=== PATIENT | female | born 1945 | race Caucasian/White ===

== ENCOUNTER 2016-10-14 07:00 | Inpatient (IN) ==
--- NOTE | 2016-10-14 07:27 | PROVIDER DOCUMENTATION ---
HPI-Neurological Disorder - General Stated Complaint: ams Time Seen by Provider: 10/14/16 08:20 Source: family Allergies/Adverse Reactions: Patient Allergies Allergy/AdvReac Type Severity Reaction Status Date / Time nitrofurantoin Allergy Unknown RASH Verified 12/10/15 12:03 [From Macrobid] Home Medications: Home Medication List Medication Instructions Recorded Confirmed Last Taken Type Aspirin [Adult Low Dose Aspirin EC] 81 mg PO QAM #0 05/03/15 10/14/16 12/10/15 Rx Celecoxib [Celebrex] 200 mg PO QAM #0 05/03/15 12/10/15 12/10/15 Rx Esomeprazole Magnesium [Nexium] 40 mg PO QAM #0 05/03/15 10/14/16 12/10/15 Rx Bupropion HCl [Bupropion HCl ER] 300 mg PO DAILY 10/14/16 10/14/16 Unknown History Calcium Carbonate/Vitamin D3 1 each PO 10/14/16 Unknown History [Calcium 600-Vit D3 800 Tablet] Celecoxib 200 mg PO DAILY 10/14/16 10/14/16 Unknown History Cyanocobalamin (Vitamin B-12) 1,000 mcg PO DAILY 10/14/16 10/14/16 Unknown History [Vitamin B12] Desvenlafaxine E.r. [Pristiq ER] 50 mg PO DAILY 10/14/16 10/14/16 Unknown History Duloxetine HCl 60 mg PO DAILY 10/14/16 10/14/16 Unknown History Duloxetine [Cymbalta] 60 mg PO DAILY 10/14/16 10/14/16 Unknown History Ezetimibe 10 mg PO DAILY 10/14/16 10/14/16 Unknown History Methylphenidate [Ritalin] 10 mg PO BID 10/14/16 10/14/16 Unknown History Olanzapine 10 mg PO DAILY 10/14/16 10/14/16 Unknown History ROSUVAstatin [Crestor] 10 mg PO DAILY 10/14/16 10/14/16 Unknown History Venlafaxine HCl [Venlafaxine HCl 75 mg PO DAILY 10/14/16 10/14/16 Unknown History ER] - History of Present Illness-Neuro Nature of Presenting Problem: 71 y/o WF with a PMHx of GERD, HLD, Suicide attempt, depression and possible sleep disorder that presents to ER via EMS secondary to AMS. reports finding patient unresponsive this this morning. States pt's was last seen well at 9:30 lastnight. States pt's baseline is normally coherent and clear. Additionally, states pt has attempted suicide x 2 in the past. EMS states pt's blood sugar was 179. Onset/Duration: reports: other (last known well at 9:30 pm) Timing: reports: still present Context: reports: found unresponsive by family. denies: head injury, fever, paresthesia, facial droop, falling, seizure activity Character of Altered Mental Status: reports: decreased responsiveness Any recent trauma/injury?: reports: none New weakness or altered sensation location:: reports: other (unablw to ascertain ) Cognitive Baseline: alert, oriented x3 Associated Symptoms: reports: other (bilateral shoulder and arm pain) Review of Systems - Adult - REVIEW OF SYSTEMS - ADULT Constitutional: reports: no symptoms reported Eyes: reports: no symptoms reported Ears, Nose, Mouth & Throat: reports: no symptoms reported Cardiovascular: reports: no symptoms reported Respiratory: reports: no symptoms reported Gastrointestinal: reports: no symptoms reported Genitourinary: reports: no symptoms reported Musculoskeletal: reports: no symptoms reported Integumentary: reports: no symptoms reported Neurological: reports: other (decreased responsiveness) Psychiatric: reports: other (decreased responsiveness) Endocrine: reports: no symptoms reported Hematologic/Lymphatic: reports: no symptoms reported Allergic/Immunologic: reports: no symptoms reported Past History - Adult - PAST MEDICAL HISTORY-ADULT Review of Records: reports: Old Records Reviewed, Nursing Assessment Review, Medications Reviewed Cardiovascular: reports: hyperlipidemia Neurological: denies: spinal cord/brain injury Psychiatric: reports: anxiety, depression - PRIOR SURGERIES/PROCEDURES Surgical/Procedure History: reports: none, other (bladder sling) - IMMUNIZATION STATUS Childhood Immunizations: See Nurse Assessment Flu Vaccine: See Nurse Assessment - FAMILY HISTORY Family History: reviewed, not pertinent - SOCIAL HISTORY Smoking: denies Substance Use: none/never Alcohol Use Frequency: never Living Situation: family Physical Exam- Neurological - Physical Exam-Neuro General Appearance: thin, lethargic, obtunded Eye Exam: bilateral eye: normal inspection, PERRL, EOMI HENMT: normocephalic/atraumatic, other (dry oral mucosa) Head Injury: no evidence of injury. negative: Trinidad's Sign, contusions, lacerations, raccoon eyes, swelling Neck: full range of motion, supple. negative: lymphadenopathy Respiratory: chest non-tender, lungs clear, normal breath sounds. negative: crackles, rales, rhonchi, stridor, wheezing Cardiovascular: no murmur, tachycardia. negative: irregularly irregular Abdominal Exam: normal bowel sounds, soft, rigid. negative: distended, guarding , rebound Lymphatic: no adenopathy Extremity: normal inspection. 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 negative: normal speech, facial asymmetry, facial droop, facial paresthesias Coordination/Gait: negative: normal finger to nose, normal gait Motor/Sensory: other (unable to assess due to condition) Neurologic: other (unable to assess due to condition). negative: facial droop Integumentary: normal color, normal turgor, warm/dry. negative: swelling, tenderness Psych/Mental Status: other (unable to assess due to condition) - Glascow Coma Scale Best Eye Response: (2) open to pain Best Verbal Response: (1) no verbal response Best Motor Response: (4) withdraws to pain Progress - PLAN OF CARE/RESULTS Progress/Plan/Lab Results: Vital Signs - 8 hr 10/14/16 07:25 10/14/16 08:16 10/14/16 08:51 Temperature 98.5 F Pulse Rate 130 H 129 H 127 H Respiratory Rate 18 20 16 Blood Pressure 116/61 137/80 137/80 O2 Sat by Pulse Oximetry 99 100 100 Laboratory Results - last 24 hr 10/14/16 10/14/16 10/14/16 07:24 07:37 07:37 WBC 12.44 H RBC 4.18 L Hgb 13.7 Hct 39.5 MCV 94.5 MCH 32.8 H MCHC 34.7 RDW Std Deviation 11.9 Plt Count 252 MPV 9.3 Immature Gran % (Auto) 0.0 Neut % (Auto) 91.5 H Lymph % (Auto) 5.1 L Bertie % (Auto) 3.3 Eos % (Auto) 0.1 Baso % (Auto) 0.0 Immature Gran # (Auto) 0.00 Neut # (Auto) 11.39 H Lymph # (Auto) 0.63 L Bertie # (Auto) 0.41 Eos # (Auto) 0.01 Baso # (Auto) 0.00 Segmented Neutrophils Not Reportable PT INR PTT (Actin FS) Specimen Type ARTERIAL Sample Site R RADIAL pH 7.42 pCO2 36 pO2 88 HCO3 24.3 Base Excess -0.7 Oxyhemoglobin 95.9 ABG O2 Sat (Calculated) 19.1 ABG O2 Saturation 99.5 ABG Carboxyhemoglobin 2.00 ABG Methemoglobin 1.6 H Luisito Test YES Total Hemoglobin 14.1 Lactate 4.30 H Liter Flow 4.0 Blood Gas Modality CANNULA FiO2 % 36.0 Sodium Potassium Chloride Carbon Dioxide Anion Gap BUN Creatinine Estimated GFR/1.73 m2 BUN/Creatinine Ratio Glucose Calculated Osmolality Calcium Total Bilirubin AST ALT Alkaline Phosphatase Creatine Kinase Troponin T Total Protein Albumin Globulin Albumin/Globulin Ratio Plasma Lactate Urine Source Urine Color Urine Turbidity Urine pH Ur Specific [place] Urine Protein Ur Glucose (Stick) Ur Ketones (Stick) Urine Blood Urine Nitrite Urine Bilirubin Urobilinogen Dipstick Urine Leukocytes Urine WBC (Auto) Urine RBC (Auto) U Epithel Cells (Auto) Urine Bacteria (Auto) Urine Opiates Screen Ur Oxycodone Screen Ur Methadone, Qual Ur Barbiturates Screen Ur Phencyclidine Scrn Ur Amphetamines Screen U Benzodiazepines Scrn Urine Cocaine Screen U Cannabinoids Screen Plasma/Serum Ethyl Alc 10/14/16 10/14/16 10/14/16 07:37 07:37 07:37 WBC RBC Hgb Hct MCV MCH MCHC RDW Std Deviation Plt Count MPV Immature Gran % (Auto) Neut % (Auto) Lymph % (Auto) Bertie % (Auto) Eos % (Auto) Baso % (Auto) Immature Gran # (Auto) Neut # (Auto) Lymph # (Auto) Bertie # (Auto) Eos # (Auto) Baso # (Auto) Segmented Neutrophils PT 10.2 INR 0.97 PTT (Actin FS) 25.2 Specimen Type Sample Site pH pCO2 pO2 HCO3 Base Excess Oxyhemoglobin ABG O2 Sat (Calculated) ABG O2 Saturation ABG Carboxyhemoglobin ABG Methemoglobin Luisito Test Total Hemoglobin Lactate Liter Flow Blood Gas Modality FiO2 % Sodium 138 Potassium 4.0 Chloride 100 Carbon Dioxide 21 L Anion Gap 17 BUN 21 Creatinine 0.8 Estimated GFR/1.73 m2 > 60 BUN/Creatinine Ratio 26 Glucose 182 H Calculated Osmolality 283 Calcium 9.6 Total Bilirubin 0.23 AST 16 ALT 13 Alkaline Phosphatase 68 Creatine Kinase 44 Troponin T Total Protein 6.7 Albumin 3.8 Globulin 2.9 Albumin/Globulin Ratio 1.3 Plasma Lactate 5.6 H Urine Source Urine Color Urine Turbidity Urine pH Ur Specific [place] Urine Protein Ur Glucose (Stick) Ur Ketones (Stick) Urine Blood Urine Nitrite Urine Bilirubin Urobilinogen Dipstick Urine Leukocytes Urine WBC (Auto) Urine RBC (Auto) U Epithel Cells (Auto) Urine Bacteria (Auto) Urine Opiates Screen Ur Oxycodone Screen Ur Methadone, Qual Ur Barbiturates Screen Ur Phencyclidine Scrn Ur Amphetamines Screen U Benzodiazepines Scrn Urine Cocaine Screen U Cannabinoids Screen Plasma/Serum Ethyl Alc 10/14/16 10/14/16 10/14/16 07:37 07:57 07:57 WBC RBC Hgb Hct MCV MCH MCHC RDW Std Deviation Plt Count MPV Immature Gran % (Auto) Neut % (Auto) Lymph % (Auto) Bertie % (Auto) Eos % (Auto) Baso % (Auto) Immature Gran # (Auto) Neut # (Auto) Lymph # (Auto) Bertie # (Auto) Eos # (Auto) Baso # (Auto) Segmented Neutrophils PT INR PTT (Actin FS) Specimen Type Sample Site pH pCO2 pO2 HCO3 Base Excess Oxyhemoglobin ABG O2 Sat (Calculated) ABG O2 Saturation ABG Carboxyhemoglobin ABG Methemoglobin Luisito Test Total Hemoglobin Lactate Liter Flow Blood Gas Modality FiO2 % Sodium Potassium Chloride Carbon Dioxide Anion Gap BUN Creatinine Estimated GFR/1.73 m2 BUN/Creatinine Ratio Glucose Calculated Osmolality Calcium Total Bilirubin AST ALT Alkaline Phosphatase Creatine Kinase Troponin T < 0.010 Total Protein Albumin Globulin Albumin/Globulin Ratio Plasma Lactate Urine Source CATH Urine Color YELLOW Urine Turbidity CLEAR Urine pH 5.5 Ur Specific [place] 1.016 Urine Protein TRACE A Ur Glucose (Stick) 500 A Ur Ketones (Stick) NEGATIVE Urine Blood NEGATIVE Urine Nitrite NEGATIVE Urine Bilirubin NEGATIVE Urobilinogen Dipstick NORMAL Urine Leukocytes TRACE A Urine WBC (Auto) <10 Urine RBC (Auto) <10 U Epithel Cells (Auto) <10 Urine Bacteria (Auto) NEGATIVE Urine Opiates Screen NONE DETECTED Ur Oxycodone Screen NONE DETECTED Ur Methadone, Qual NONE DETECTED Ur Barbiturates Screen NONE DETECTED Ur Phencyclidine Scrn NONE DETECTED Ur Amphetamines Screen NONE DETECTED U Benzodiazepines Scrn NONE DETECTED Urine Cocaine Screen NONE DETECTED U Cannabinoids Screen NONE DETECTED Plasma/Serum Ethyl Alc Orders Category Date Time Status Cardiac Monitoring DIRECTED Care 10/14/16 06:58 Active Finger Stick Blood Sugar (ED) DIRECTED Care 10/14/16 06:58 Active Oxygen Therapy- ED Nursing DIRECTED Care 10/14/16 06:58 Active Saline Loc NOW Care 10/14/16 06:58 Active CHEST-PORTABLE [RAD] Stat Exams 10/14/16 06:58 Taken HEAD W/O CONTRAST [CT] Stat Exams 10/14/16 07:00 Draft ABG [RESP] Routine Lab 10/14/16 07:24 Completed ALCOHOL BLOOD Stat Lab 10/14/16 07:37 Completed BLOOD CULTURE [BLDCUL] Stat Lab 10/14/16 07:30 Received CBC WITH ELECTRONIC DIFF [HEME] Stat Lab 10/14/16 07:37 Completed CK PROFILE [SP CHEM] Stat Lab 10/14/16 07:37 Completed COMPREHENSIVE METABOLIC PANEL [CHEM] Stat Lab 10/14/16 07:37 Completed LACTATE, PLASMA [CHEM] Stat Lab 10/14/16 07:37 Completed PROTIME WITH INR [COAG] Stat Lab 10/14/16 07:37 Completed PTT [COAG] Stat Lab 10/14/16 07:37 Completed TROPONIN T Stat Lab 10/14/16 07:37 Completed URINALYSIS W/POSS RFLX CULT-1 [URINALYSIS] Stat Lab 10/14/16 07:57 Completed URINE CULTURE [RM] Routine Lab 10/14/16 08:41 Received URINE DRUG SCREEN Stat Lab 10/14/16 07:57 Completed 0.9% Sodium Chloride Inj [Ns] 1,000 ml Med 10/14/16 07:48 Discontinued IV 999 mls/hr CefTRIAXONE 1 GM/NS [Rocephin 1 gm/Ns] Med 10/14/16 08:13 Discontinued 1 gm in 50 ml IV NOW Pulse Oximetry Stat Oth 10/14/16 06:58 Active EKG [EKG] Stat Ther 10/14/16 06:58 Ordered Result Diagrams: 10/14/16 07:37 10/14/16 07:37 - EKG 1 Time of EKG reading by physician:: 07:19 EKG Read and Signed by:: Mary oLu Su Jr EKG Interpretation (*Must complete 3 of following elements*): Abnormal Rate: 129 Rhythm: sinus tachycardia SD Interval: normal ST Wave: normal - XRAY 1 XRAY Study: Chest Impression: Normal XRAY Interpretation: negative - CT/MRI 1 CT Study: Head Impression: Normal CT Results: negative head CT - CONSULTS/PCP/HOSPITALIST Notification #1 *Consult/PCP/Hospitalist*: Dr. Calvo Time Discussed: :02 Consult Disposition: Admit Departure - Departure Time of Disposition Decision: :07 DIAGNOSIS: Encephalopathy, Tachycardia Disposition: ADMITTED INPATIENT 09 Certified Medical Emergency: Emergent Condition: Good - Critical Care Note This patient required my direct & personal management of CC.: No
[2016-10-14 07:37] LABS: ALLEN TEST YES; BE -0.7 mmoll (-3.0-3.0); BLOOD TYPE ARTERIAL; DRAW SITE R RADIAL; METHB 1.6 % (0.0-1.5); O2(CT) 19.1 mL/dL (15.0-23.0); PCO2(98.6) 36 mmHg (35-45); PO2(98.6) 88 mmHg (60-100); SAMPLE BLOOD; SAO2 99.5 % (95.0-100.0); THB 14.1 g/dL (11.5-17.4); pH(98.6) 7.42 (7.35-7.45)
[2016-10-14 07:39] LABS: MODALITY CANNULA
[2016-10-14] MEDS ORDERED: NS 1,000 ML IV ONE ×3 (07:48→09:43)
--- NOTE | 2016-10-14 07:53 | Diag Imaging Result Document ---
PROCEDURE NAME: HEAD W/O CONTRAST - 10/14/[address]: A CT dose reduction protocol was used. COMPARISON: 12/10/2015. FINDINGS: The ventricles and sulci are normal in size and contour. There is no mass, hemorrhage, or evidence of acute ischemia. The bony calvaria is intact. The visualized paranasal sinuses and mastoid air cells are clear. IMPRESSION: Negative head [facility]
[2016-10-14 08:02] LABS: EOS# 0.01 X1000 (0.0-0.7); EOS% 0.1 % (0.0-10.0); HEMATOCRIT 39.5 % (37.0-47.0); HEMOGLOBIN 13.7 g/dL (12.0-16.0); LYMPH# 0.63 X1000 (1.2-3.4); LYMPH% 5.1 % (20.5-51.1); MCH 32.8 PG (27-31); MCHC 34.7 g/dL (33-37); MCV 94.5 FL (81-99); MONO# 0.41 X1000 (0.11-0.59); MONO% 3.3 % (1.7-9.3); MPV 9.3 FL (7.4-10.4); NEUT% 91.5 % (42.2-75.2); PLT 252 X1000 (130-400); RBC 4.18 XMIL (4.2-5.4)
[2016-10-14 08:05] LABS: INR 0.97; PROTIME 10.2 Seconds (9.2-11.7); PTT 25.2 Seconds (22.0-36.0)
[2016-10-14 08:07] LABS: AGAP 17; ALBUMIN 3.8 g/dL (3.5-5.0); ALKALINE PHOSPHATASE 68 U/L (32-104); BUN 21 mg/dL (8-22); CALCIUM 9.6 mg/dL (8.8-10.2); CHLORIDE 100 mmol/L (98-107); CK PROFILE 44 U/L (24-173); COSMO 283; GOT 16 U/L (10-30); GPT 13 U/L (10-36); SODIUM 138 mmol/L (136-145); TCO2 21 mmol/L (25-35); TOTAL BILIRUBIN 0.23 mg/dL (0.20-1.00); TOTAL PROTEIN 6.7 g/dL (6.3-8.3)
[2016-10-14] MEDS ORDERED: ROCEPHIN 1 GM/NS 1 GM/50 ML IVPB IV ONE (08:13)
[2016-10-14 08:18] LABS: URINE MICRO REVIEW NEEDED? NO; URINE SOURCE CATH
[2016-10-14 08:23] LABS: BILIRUBIN URINE NEGATIVE (NEGATIVE); BLOOD URINE NEGATIVE (NEGATIVE); COLOR YELLOW; GLUCOSE URINE 500 mg/dL (NEGATIVE); LEUKOCYTES URINE TRACE (NEGATIVE); NITRITE URINE NEGATIVE (NEGATIVE); PH URINE 5.5; PROTEIN URINE TRACE mg/dL (NEGATIVE); SP GRAVITY URINE 1.016; TURBIDITY URINE CLEAR (CLEAR); UR EPITHELIAL CELLS <10 /HPF (<10); URINE BACTERIA NEGATIVE /HPF; URINE CULTURE NEEDED? YES; URINE RBC <10 /HPF (<10); URINE WBC <10 /HPF (<10); UROBILINOGEN URINE NORMAL (NORMAL)
[2016-10-14 08:35] LABS: MANUAL DIFF NEEDED? NO
[2016-10-14 08:40] LABS: UR AMPHETAMINES QUAL NONE DETECTED (NONE DETECT); UR BARBITUATES QUAL NONE DETECTED (NONE DETECT); UR BENZODIAZEPIN QUAL NONE DETECTED (NONE DETECT); UR CANNABINOIDS QUAL NONE DETECTED (NONE DETECT); UR COCAINE QUAL NONE DETECTED (NONE DETECT); UR METHADONE QUAL NONE DETECTED (NONE DETECT); UR OPIATES QUAL NONE DETECTED (NONE DETECT); UR OXYCODONE QUAL NONE DETECTED (NONE DETECT); UR PCP QUAL NONE DETECTED (NONE DETECT)
[2016-10-14] MEDS ORDERED: ZOFRAN IV PRN (09:43)
--- NOTE | 2016-10-14 10:58 | Diag Imaging Result Document ---
PROCEDURE NAME: CHEST-PORTABLE - 10/14/2016 PORTABLE CHEST X-RAY, 10/14/2016: COMPARISON: 12/10/2015. FINDINGS: The lungs are normally expanded and clear. Heart size and mediastinal contours are normal. No pneumothorax or pleural effusion. IMPRESSION: Negative exam.
[2016-10-14 11:36] LABS: ACETAMINOPHEN < 1.2 ug/mL (10-30)
--- NOTE | 2016-10-14 15:49 | HISTORY AND PHYSICAL ---
PRIMARY CARE PROVIDER: Dr. Rachid Godoy. CHIEF COMPLAINT: Unresponsive. HISTORY OF PRESENT ILLNESS: Ms. Jodie Shaikh is a 71-year-old female with a history of depression and suicidal attempts x2; one with medications, another with attempted hanging with a belt. Also history of arthritis, hyperlipidemia, GERD. Apparently, the states that he last saw her normal round 9:30 last night when he went to bed. She usually does not go to bed until about 10:30. He woke up this morning around 5:30, got ready and then at 6: 00 a.m. checked on her. She had uncovered herself, no blankets, was moaning and groaning, snoring, would withdraw her arms to stimulation. She did open her eyes and look at him with focusing. He states that her breathing was okay and that she was mumbling some, and he called 911. When further reviewing her medication list, her box of medications had medications from back in 2011, so it is unsure if she overdosed the prescription medications. Urine drug screen is negative. Alcohol is negative. She has got an elevated lactate with elevated white blood cell count, but she is afebrile. We will do IV fluids. She did receive 1 g of Rocephin. We will admit to the ICU. She did not follow commands but with physical and verbal stimuli she opened her eyes and focused momentarily and mumbled. She will be monitored closely, started on IV fluid hydration. PAST MEDICAL HISTORY: GERD, hyperlipidemia, suicidal ideations with 2 attempts , depression, sleep disorder, arthritis, B12 deficiency. SURGICAL HISTORY: Bladder sling. SOCIAL HISTORY: Denies tobacco, alcohol, or illicit drug use. FAMILY HISTORY: Father had Alzheimer's. Mother via suicide and, apparently, there is heart disease on both sides of the family. REVIEW OF SYSTEMS: Unable to obtain. ALLERGIES: Nitrofurantoin. HOME MEDICATIONS: 1. Aspirin 81 mg p.o. daily. 2. Wellbutrin 300 mg p.o. daily. 3. Calcium. 4. Vitamin D. 5. Celebrex 200 mg p.o. daily. 6. Vitamin B12 1000 mcg p.o. daily. 7. Pristiq extended release, 50 mg p.o. daily. 8. Cymbalta 60 mg p.o. daily. 9. Nexium 40 mg p.o. daily. 10. Ezetimibe 10 mg p.o. daily. 11. Ritalin 10 mg p.o. twice daily. 12. Olanzapine Zyprexa 10 mg p.o. daily. 13. Crestor 10 mg p.o. daily. 14. Venlafaxine extended release 75 mg p.o. daily. LABORATORY DATA: White blood cells 12,000. Hemoglobin 13, hematocrit 39, platelet count 252,000. INR 0.97. PTT 25.2. PO 7.42, pCO2 of 36, PO2 of 88, bicarb 24, base excess - 0.7. Lactate 4.3 on the ABG and a serum lactate of 5.6. This is on 4 L nasal cannula. Sodium 138, potassium 4.0. BUN 21, creatinine 0.8, glucose 182. Bilirubin 0.23, AST 16, ALT 13, CK 44, troponin less than 0.01. Urinalysis: Trace protein, 500 glucose, trace leukocytes. IMAGING: Head CT was negative. Chest x-ray was negative. PHYSICAL EXAMINATION: VITAL SIGNS: Temperature 98.5 degrees, heart rate 132, respiratory rate 21, blood pressure 138/73, O2 saturation 100% on 2 L nasal cannula. 5 feet 6 inches tall, 120 pounds. BMI is 19.4. GENERAL: Ms. Jodie Shaikh is a 71-year-old female who is currently unresponsive verbally. HEENT: Atraumatic, normocephalic. Pupils equal, round, reactive to light. Unable to assess extraocular movements. Mucous membranes are dry. NECK: No JVD or carotid bruits. CARDIOVASCULAR: S1, S2. Tachycardic rate and rhythm. No rubs, gallops, murmurs. PULMONARY: Clear to auscultation. Bilateral breath sounds. No accessory muscle use or work of breathing noted. Currently on 2 L nasal cannula. GI soft nontender nondistended. Positive bowel sounds x4. EXTREMITIES: No edema noted. +1 dorsalis pedal pulses, +2 radial pulses. NEUROLOGIC: Pupils equal and reactive. She does not follow commands. Opens eyes and focused to verbal physical stimuli. Withdrew all extremities. SKIN: Warm, dry, intact. ASSESSMENT AND PLAN: 1. Likely toxic encephalopathy secondary to prescription medications. We will monitor in the ICU until she is responsive again. Neuro checks every 4 hours. IV fluid hydration. 2. Lactic acidosis with leukocytosis. This is Systemic Inflammatory Response Syndrome but no actual source of infection. She did receive 1 dose of Rocephin. We will follow up with blood cultures and again with IV fluid hydration. 3. Depression with history of suicidal attempts. Will likely need [facility] consult prior to discharge. Dictated by CHANDNI Thompson for Jules Calvo MD cc: CHANDNI Thompson MD Jeffrey A. Johnson, DO pt examined, agree with above, if unimproved in next 24 hours will pursue MRI and possibly neuro consult [facility]
[2016-10-14] MEDS: NS 1,000 ML IV SCH (18:20)
[2016-10-14] MEDS: LOPRESSOR IV SCH (20:00)
[2016-10-15] MEDS: NS 1,000 ML IV SCH ×2 (03:22→13:55)
[2016-10-15] MEDS: LOPRESSOR IV SCH ×4 (03:22→19:27)
[2016-10-15 04:44] LABS: MANUAL DIFF NEEDED? NO
[2016-10-15 04:50] LABS: BASO% 0.2 % (0.0-0.8); HEMATOCRIT 37.4 % (37.0-47.0); HEMOGLOBIN 12.8 g/dL (12.0-16.0); LYMPH# 0.57 X1000 (1.2-3.4); LYMPH% 11.1 % (20.5-51.1); MCH 32.2 PG (27-31); MCHC 34.2 g/dL (33-37); MCV 94.2 FL (81-99); MONO# 0.57 X1000 (0.11-0.59); MONO% 11.1 % (1.7-9.3); MPV 9.3 FL (7.4-10.4); NEUT% 77.6 % (42.2-75.2); PLT 226 X1000 (130-400); RBC 3.97 XMIL (4.2-5.4)
[2016-10-15 05:06] LABS: AGAP 11; ALKALINE PHOSPHATASE 56 U/L (32-104); BUN 12 mg/dL (8-22); CALCIUM 9.1 mg/dL (8.8-10.2); CHLORIDE 105 mmol/L (98-107); COSMO 279; GOT 16 U/L (10-30); GPT 10 U/L (10-36); MAGNESIUM 1.7 mg/dL (1.5-2.7); POTASSIUM 3.8 mmol/L (3.5-5.1); SODIUM 139 mmol/L (136-145); TCO2 23 mmol/L (25-35); TOTAL BILIRUBIN 0.57 mg/dL (0.20-1.00); TOTAL PROTEIN 5.7 g/dL (6.3-8.3)
--- NOTE | 2016-10-15 05:07 | EKG Report ---
Test Performed on : 10/14/2016 07:19:30 AM Test Reason : Blood Pressure : / mmHG Vent. Rate : 129 BPM Atrial Rate : 129 BPM P-R Int : 148 ms QRS Dur : 076 ms QT Int : 316 ms P-R-T Axes : 045 013 068 degrees QTc Int : 462 ms Sinus tachycardia. Cannot rule out Anterior infarct , age undetermined Abnormal ECG When compared with ECG of 10-DEC-2015 11:40, Vent. rate has increased BY 46 BPM Unconfirmed Result
--- NOTE | 2016-10-15 10:19 | PROGRESS NOTE ---
DATE: 10/15/2016 SUBJECTIVE: The patient is still confused. She opens her eyes more, but she is still fairly confused. She is not doing anything appropriately. Occasionally she has kind of a shaking episode, where it is not really a full seizure. OBJECTIVE: Vital Signs: Blood pressure 113/78, heart rate of 111, respiratory rate of 24 and temperature of 98.3 at 93% on 3 liters. Cardiovascular: Regular rate and rhythm. Pulmonary: Bilateral breath sounds. Occasional rhonchi. GI: Soft, nontender and nondistended. Neuro: Nonfocal, but does not participate well on exam. She does track across the midline, though. LABORATORY DATA: CMP was normal. CBC was normal. Hemoglobin and hematocrit is 12 and 37, with a normal white count. Urine is clear. UDS was unremarkable. PROBLEM LIST: 1. Encephalopathy, multifactorial. There is a possibility there is overdose, although it is not clear what she actually overdosed on at this point. Seems just not sure if this is delirium, if this is a psychiatric issue primarily. Her neuro exam is somewhat unreliable. We will progress with MRI and follow. Will try to get a neurology opinion just to see if there is some concern over subclinical seizures. We will check B 12, folate, RPR, thyroid stimulating hormone, although I do not think any of these issues necessarily are contributing and follow clinically. 2. Depression. Will await her medications. She was started on medications recently. Apparently she was started on methylphenidate, which I thought that would be positive for her amphetamines, but that did not show up in her drug screen. May repeat her drug screen just to see if anything has changed, and we will follow clinically. 3. Disposition: Pending her clinical status. Intensive care unit monitoring for now because she is still on the high aspiration risk, and we will go from there. cc: Jules Calvo MD
[2016-10-15] MEDS: ATIVAN IV ONE ×2 (10:23→10:38)
[2016-10-15] MEDS: SODIUM CHLORIDE 0.9% INJ SCH (10:24)
[2016-10-15] MEDS: PROTONIX IV SCH (10:24)
[2016-10-15] MEDS: LOVENOX SUBQ SCH (10:25)
--- NOTE | 2016-10-15 12:17 | Diag Imaging Result Document ---
PROCEDURE NAME: MRI BRAIN W W/O CONTRAST - 10/15/2016 MRI BRAIN WITH AND WITHOUT: TECHNIQUE: Axial, sagittal, and coronal images were obtained in multiple sequences. These were followed by postcontrast axial and coronal images. FINDINGS: No recent infarct. There are only minimal microvascular ischemic changes. No mass or midline shift. No enhancing lesion on the postcontrast images. No hydrocephalus. No epidural or subdural fluid collection. There is a small amount of fluid in the right mastoid sinus. No sinus opacification. IMPRESSION: 1. No recent infarct or mass. 2. There are only minimal microvascular ischemic changes.
[2016-10-15 12:20] LABS: UR AMPHETAMINES QUAL NONE DETECTED (NONE DETECT); UR BARBITUATES QUAL NONE DETECTED (NONE DETECT); UR BENZODIAZEPIN QUAL NONE DETECTED (NONE DETECT); UR CANNABINOIDS QUAL NONE DETECTED (NONE DETECT); UR COCAINE QUAL NONE DETECTED (NONE DETECT); UR METHADONE QUAL NONE DETECTED (NONE DETECT); UR OPIATES QUAL NONE DETECTED (NONE DETECT); UR OXYCODONE QUAL NONE DETECTED (NONE DETECT); UR PCP QUAL NONE DETECTED (NONE DETECT)
--- NOTE | 2016-10-15 14:05 | CONSULTATION ---
DATE OF CONSULTATION: 10/15/2016 REASON FOR CONSULTATION: The patient is seen in consultation at the request of Dr. Calvo for evaluation of altered mental status and possible seizure. HISTORY OF PRESENT ILLNESS: The history is taken from chart review, as the patient is altered and unable to provide the history, and there is no family present at this time. The patient is a 71-year-old female with a history of depression, suicidal attempts in the past, and hyperlipidemia, who presented unresponsive to the ER yesterday and was admitted. Her stated that she was normal around 9:30 p.m. the night prior, when he last saw her. He checked on her at 6 a.m., after he was up and dressed, and he found that she had uncovered herself, had no blankets, with moaning and groaning, snoring, and would withdraw her arms to stimulation. She apparently opened her eyes and was able to look at him. He stated that she was breathing and mumbling, and he called 911. Apparently, her medications had some dated back from 2011, so it is not clear whether or not she had taken some of these old medications. There was a report that she did have a couple of medication changes recently that were related to her psychiatric issues. On admission, her urine drug screen was negative. Alcohol was negative. Her white count was elevated at 12, but she was afebrile. Her lactate was elevated , as well. White count is normal today. She did receive IV fluids and Rocephin. PAST MEDICAL HISTORY: 1. Depression. 2. Suicidal ideations with 2 attempts, 1 with medication overdose and 1 attempt at hanging herself with a belt. 3. Hyperlipidemia. 4. GERD. 5. Sleep disorder. 6. Arthritis. 7. B12 deficiency. 8. Bladder sling. SOCIAL HISTORY: Reportedly negative for tobacco, alcohol, or illicit drug use. She is . FAMILY HISTORY: Reported that her mother committed suicide and she may have had another family member who has also committed suicide. Heart disease runs in the family. Her father may have had Alzheimer disease. ALLERGIES: Nitrofurantoin. REVIEW OF SYSTEMS: Unable to obtain due to the patient's mental status. HOME MEDICATIONS: Aspirin 81 mg. Wellbutrin. Calcium and vitamin D. Celebrex. B12. Pristiq extended-release. Cymbalta. Nexium. Ritalin. Olanzapine. Crestor. Venlafaxine extended release. Ezetimibe. PHYSICAL EXAMINATION: Vital Signs: Afebrile, pulse 111, blood pressure 113/78 , respiratory rate 24, 93% on 3L nasal cannula. General: This is an elderly female lying in bed, mouth open. Gurgling noises are prominent. She somnolent. HEENT: Normocephalic. Anicteric. No erythema. Dry mucous membranes. Neck: Supple. Could not appreciate carotid bruits over the gurgling noises. Cardiovascular: Regular rhythm. Intact pedal pulses. Lungs: She has upper airway gurgling, which is prominent. Abdomen: Soft, nondistended. Extremities : No cyanosis or edema. Skin: No rash. NEUROLOGICAL EXAMINATION: Mental status: She is somnolent, does not attend. She does not respond to loud voice. She does grimace to light sternal rub. She does not open her eyes and regard me. Cranial nerves: Her pupils are equal, round, and reactive to light. Pupils are 3 to 2 mm, both eyes. Positive doll's eyes. No nystagmus. Her face appears symmetrical with equal grimace. Motor examination: Normal bulk and tone. She has occasional irregular and fluctuating shaking of her extremities all over. This notably happens with some regularity with tactile stimulation. She is at least against gravity in all of her extremities and appears symmetrical. Her reflexes are brisk, 3+ and symmetric throughout, though she has no clonus. Her plantar response is flexor on the left and remains neutral on the right. No Andrade's sign. Sensory examination: She responds to painful stimulation symmetrically in all extremities. Cerebellar, coordination, and gait: Unable to assess due to mental status. LABORATORY DATA: White count on admission was 12.4, normal today. Hemoglobin 13.7, hematocrit 39, platelets 252,000. Chemistry panel was normal. The glucose was 132. Magnesium and calcium normal. AST, ALT, and alkaline phosphatase normal. Urine toxicology and alcohol screen were negative. Urinalysis: Trace protein, trace leukocytes, glucose 500. IMAGING: Noncontrast head CT, personally reviewed and agree with Radiology, negative for acute findings. An MRI of the brain without contrast done today is personally reviewed. No acute findings are noted. No evidence of acute stroke. The Radiology read is pending. Chest x-ray is negative. DISCUSSION AND DECISION-MAKING: This is a 71-year-old female with a history of depression with past suicidal attempts and history of hyperlipidemia, who was admitted yesterday after being found unresponsive. 1. Encephalopathy. Concern for toxic ingestion of prescription medications or perhaps secondary to just recent medication adjustment. May be complicated by unwitnessed, most likely provoked, seizure at home. Her examination is nonfocal, though she does have brisk reflexes throughout, which can be seen in toxic ingestion of certain medications. Alternatively, continued subclinical seizures are a possibility. The episodic irregular shaking movements of her extremities that is brought on pretty regularly with tactile stimulation does not appear visually to be seizure activity. Her head CT and MRI did not show anything acute. Will order a routine EEG to evaluate her encephalopathy and evidence for subclinical seizure activity. Would also recommend considering imaging of the neck just to be sure she has not sustained an injury due to her global hyperreflexia , though I suspect this is more likely because of a toxic ingestion. Agree with [facility] consult for her depression and history of suicidal attempts. Thank you for this consultation. Will follow. cc: Cathleen Jeff MD MTDD
--- NOTE | 2016-10-15 15:52 | Diag Imaging Result Document ---
PROCEDURE NAME: NECK W/CONTRAST - 10/15/2016 CT NECK WITH INTRAVENOUS CONTRAST: FINDINGS: There is increased density in the superior segment of the left lower lobe, and there is a tiny left effusion. Normal thyroid and larynx. The parotid and submandibular glands are symmetrical. No precervical soft tissue swelling. No sinus opacification. There are small lymph nodes scattered within the neck. No mass or abscess. Normal common carotid and internal carotid arteries. There is flow in each vertebral artery. IMPRESSION: 1. There are small lymph nodes scattered in the neck, but no mass or abscess. 2. There are infiltrates in the superior segment of the left lower lobe with a small left effusion. Followup CT chest may be beneficial. [facility]
[2016-10-15] MEDS: OFIRMEV 1000 MG/ISOTONIC SOLN 1,000 MG/100 ML BOTTLE IV PRN (19:27)
[2016-10-16] MEDS: NS 1,000 ML IV SCH ×2 (00:38→11:28)
[2016-10-16] MEDS: LOPRESSOR IV SCH ×2 (02:18→08:37)
[2016-10-16] MEDS: OFIRMEV 1000 MG/ISOTONIC SOLN 1,000 MG/100 ML BOTTLE IV PRN (04:27)
[2016-10-16 04:55] LABS: MANUAL DIFF NEEDED? NO
[2016-10-16 05:01] LABS: BASO% 0.4 % (0.0-0.8); EOS# 0.04 X1000 (0.0-0.7); EOS% 0.7 % (0.0-10.0); HEMATOCRIT 38.7 % (37.0-47.0); LYMPH# 0.93 X1000 (1.2-3.4); LYMPH% 16.3 % (20.5-51.1); MCH 32.3 PG (27-31); MCHC 33.6 g/dL (33-37); MCV 96.3 FL (81-99); MONO# 0.48 X1000 (0.11-0.59); MONO% 8.4 % (1.7-9.3); MPV 9.3 FL (7.4-10.4); NEUT% 74.2 % (42.2-75.2); PLT 199 X1000 (130-400); RBC 4.02 XMIL (4.2-5.4)
[2016-10-16 05:17] LABS: AGAP 11; ALBUMIN 2.9 g/dL (3.5-5.0); ALKALINE PHOSPHATASE 59 U/L (32-104); BUN 11 mg/dL (8-22); CALCIUM 9.1 mg/dL (8.8-10.2); CHLORIDE 110 mmol/L (98-107); COSMO 284; GOT 14 U/L (10-30); GPT 10 U/L (10-36); POTASSIUM 3.9 mmol/L (3.5-5.1); SODIUM 143 mmol/L (136-145); TCO2 22 mmol/L (25-35); TOTAL BILIRUBIN 0.52 mg/dL (0.20-1.00); TOTAL PROTEIN 5.9 g/dL (6.3-8.3)
--- NOTE | 2016-10-16 06:21 | Diag Imaging Result Document ---
PROCEDURE NAME: CHEST-PORTABLE - 10/16/2016 PORTABLE CHEST: COMPARISON: Compared to 10/14/2016. FINDINGS: Worsening basilar infiltrates. Heart is not enlarged. The vessels are not distended. Questionable tiny left effusion. The patient is rotated to the right. IMPRESSION: Interval worsening compared to the prior exam.
[2016-10-16] MEDS: SODIUM CHLORIDE 0.9% INJ SCH (08:47)
[2016-10-16] MEDS: LOVENOX SUBQ SCH (08:47)
[2016-10-16] MEDS: PROTONIX IV SCH (08:47)
--- NOTE | 2016-10-16 09:20 | PROGRESS NOTE ---
DATE: 10/16/2016 Dr. Jeff saw Ms. Shaikh for initial neurology consultation yesterday. We discussed her case. This morning, she is a little bit more easily waked, more attentive, responding more consistently. She answered some simple questions correctly but did not tell me the name of this facility. She moved her limbs and did not show evidence of any focal neurologic problem. She followed simple commands including commands requiring digit distinction and right/left distinction. I discussed neurologic status briefly with family at the bedside. No new suggestions today from a neurologic standpoint. Thanks for allowing us to follow Ms. Shaikh. cc: Jennie Gordon III, MD
[2016-10-16] MEDS ORDERED: TYLENOL PO PRN (10:00)
--- NOTE | 2016-10-16 10:25 | PROGRESS NOTE ---
DATE: 10/16/2016 SUBJECTIVE: The patient has no focal complaints. OBJECTIVE: Vital Signs: Blood pressure 116/77, heart rate of 88, respiratory rate 20, temperature 99.4 degrees. T-max I think was 100.9. Saturations: She has dropped her saturations and is now up to 50% on her Ventimask. Cardiovascular: Regular rate and rhythm. Pulmonary: Rales at the bases. GI: Soft, nontender, nondistended. Bowel sounds are positive. LABORATORY DATA: White count of 5, hemoglobin and hematocrit 13 and 38, platelets 199. Chemistries look okay. Albumin is low at 2.9. C DIAGNOSTIC DATA: 1. Chest x-ray shows bilateral infiltrates. 2. MRI was negative for stroke. 3. Chest x-ray shows some left upper lobe infiltrates consistent with possible aspiration-type pneumonia. PROBLEM LIST: 1. Acute respiratory failure, hypoxic, likely related to volume versus aspiration which I think is more likely. In any case, we are going to work on diuresing. I am going to initiate antibiotic therapy, and we will follow clinically. Repeat chest x-ray tomorrow and monitor. 2. Encephalopathy. This seems to be improving. It may be related to medications. Apparently she was recently started on Effexor and her Zyprexa dose had been doubled; that was about a week ago before all this happened. Obviously, we are going to hold her medications, but I am going to resume her Cymbalta because she has been on that long-term and her other home medications and we will follow. Appreciate neurologic input. I think this is likely a metabolic or toxic encephalopathy related to her medications. 3. Hypertension. Continue medicines and follow. DISPOSITION: Pending improvement in her condition, we will start to ambulate and exert her as her mental status continues to improve. cc: Jules Calvo MD
[2016-10-16] MEDS: ZOSYN 3.375 GM/NS 3.375 GM/50 ML IVPB IV SCH ×3 (11:28→22:17)
[2016-10-16] MEDS: LASIX IV SCH ×2 (11:28→22:17)
[2016-10-16] MEDS: XOPENEX NEB INH SCH ×3 (12:30→21:31)
[2016-10-17] MEDS: ZOSYN 3.375 GM/NS 3.375 GM/50 ML IVPB IV SCH ×4 (03:08→21:07)
[2016-10-17] MEDS: XOPENEX NEB INH SCH ×4 (03:37→19:20)
[2016-10-17 05:11] LABS: MANUAL DIFF NEEDED? NO
[2016-10-17 05:25] LABS: BASO% 0.1 % (0.0-0.8); EOS# 0.13 X1000 (0.0-0.7); EOS% 1.8 % (0.0-10.0); HEMATOCRIT 35.9 % (37.0-47.0); HEMOGLOBIN 12.4 g/dL (12.0-16.0); IMM GRAN# 0.02 X1000 (0.0-0.04); IMM GRAN% 0.3 % (0.0-0.5); LYMPH# 1.59 X1000 (1.2-3.4); LYMPH% 22.3 % (20.5-51.1); MCH 32.5 PG (27-31); MCHC 34.5 g/dL (33-37); MONO# 0.51 X1000 (0.11-0.59); MONO% 7.2 % (1.7-9.3); MPV 9.5 FL (7.4-10.4); NEUT% 68.3 % (42.2-75.2); PLT 225 X1000 (130-400); RBC 3.82 XMIL (4.2-5.4)
[2016-10-17 05:44] LABS: AGAP 13; ALKALINE PHOSPHATASE 62 U/L (32-104); BUN 13 mg/dL (8-22); CALCIUM 9.5 mg/dL (8.8-10.2); CHLORIDE 101 mmol/L (98-107); COSMO 281; GOT 16 U/L (10-30); GPT 10 U/L (10-36); POTASSIUM 2.6 mmol/L (3.5-5.1); SODIUM 141 mmol/L (136-145); TCO2 27 mmol/L (25-35); TOTAL BILIRUBIN 0.76 mg/dL (0.20-1.00); TOTAL PROTEIN 6.5 g/dL (6.3-8.3)
[2016-10-17] MEDS: NEXIUM PO SCH (06:11)
[2016-10-17] MEDS: NS 1,000 ML IV SCH (06:11)
--- NOTE | 2016-10-17 07:23 | Diag Imaging Result Document ---
PROCEDURE NAME: CHEST-PORTABLE - 10/17/2016 PORTABLE CHEST X-RAY: COMPARISON: 10/16/2016. FINDINGS: There is significant improvement in the left basilar infiltrate mostly at the lower lobe. There is slight worsening in the right basilar infiltrate. This is overall better from 10/16/2016 but slightly worse since 10/14/2016. Heart size remains normal. IMPRESSION: Mixed changes from prior with overall improvement.
[2016-10-17] MEDS: CRESTOR PO SCH (08:07)
[2016-10-17] MEDS: ASPIRIN EC PO SCH (08:07)
[2016-10-17] MEDS: ZETIA PO SCH (08:07)
[2016-10-17] MEDS: CYMBALTA PO SCH (08:08)
[2016-10-17] MEDS ORDERED: KLOR-CON PO ONE (08:47)
[2016-10-17] MEDS ORDERED: VITAMIN D PO SCH (09:00)
--- NOTE | 2016-10-17 09:41 | PROGRESS NOTE ---
DATE: 10/17/2016 Ms. Shaikh is awake, alert, sitting up in bed, feeding herself, chewing and swallowing without difficulty. I observed her carrying on some appropriate conversation with family. She was much more spontaneous today. She denies being in the hospital recently, denies having met me yesterday, denies meeting Dr. Jeff the day before that. There is no clear focal neurologic finding. Her speech is not dysarthric. Language function is intact. IMPRESSION: Global encephalopathy, probably toxic, resolving day by day as expected. There is no new suggestion or new thought today from a neurologic standpoint. cc: Jennie Gordon III, MD MTDD
[2016-10-17] MEDS: SODIUM CHLORIDE 0.9% INJ SCH (09:48)
[2016-10-17] MEDS: PROTONIX IV SCH (09:48)
[2016-10-17] MEDS: LOVENOX SUBQ SCH (09:48)
[2016-10-17] MEDS: POTASSIUM CHLORIDE 20 MEQ/SWI 20 MEQ/100 ML IVPB IV SCH ×2 (09:48→11:52)
[2016-10-17] MEDS: TOPROL XL PO SCH (10:25)
--- NOTE | 2016-10-17 10:36 | PROGRESS NOTE ---
DATE: 10/17/2016 SUBJECTIVE: Patient has no complaints. She is awake, alert. She is asking for regular food. OBJECTIVE: Vital Signs: Blood pressure 135/80, heart rate 105, respiratory rate 15, temperature 98.9 degrees, 93% on room air. Cardiovascular: Regular rate and rhythm. Pulmonary: Bilateral breath sounds clear to auscultation. GI: Soft, nontender, nondistended. Bowel sounds are positive. Extremities: Have no clubbing or cyanosis. Lymphatics: No peripheral edema. Laboratory Data: White count 7, hemoglobin and hematocrit 12 and 35, platelets of 225,000. Potassium 2.6. Albumin of 3. Chest x-ray shows a right basilar infiltrate with resolving left lower lobe infiltrate. PROBLEM LIST: 1. Encephalopathy. This is apparently resolved. Apparently, found 3 empty bottles that had been thrown away of trazodone, vitamin D, and olanzapine. It is unclear. She denies any overdose. She denies any suicidality. However, she does have a strong history of depression so this is likely a drug interaction. Clinically, she has improved. 2. Hypokalemia, likely related to diuretic. We will continue to follow. I am going to start some low-dose Toprol because of her relative tachycardia. 3. Aspiration pneumonia. We will continue antibiotics and pulmonary toilet. 4. Disposition. Likely to the floor today. I think she will need a consult with Darlene Matias prior to discharge which I do not see but I am going to go ahead and put it in for tomorrow morning and we will go from there. cc: Jules Calvo MD
[2016-10-17] MEDS: NS NEB INH SCH (19:20)
[2016-10-18] MEDS: ZOSYN 3.375 GM/NS 3.375 GM/50 ML IVPB IV SCH ×5 (04:18→22:15)
[2016-10-18] MEDS: XOPENEX NEB INH SCH ×4 (04:18→20:34)
[2016-10-18 07:23] LABS: MANUAL DIFF NEEDED? NO
[2016-10-18 07:27] LABS: BASO% 0.3 % (0.0-0.8); EOS# 0.34 X1000 (0.0-0.7); EOS% 4.5 % (0.0-10.0); HEMATOCRIT 34.8 % (37.0-47.0); HEMOGLOBIN 11.7 g/dL (12.0-16.0); IMM GRAN# 0.04 X1000 (0.0-0.04); IMM GRAN% 0.5 % (0.0-0.5); LYMPH# 1.37 X1000 (1.2-3.4); LYMPH% 18.3 % (20.5-51.1); MCH 32.5 PG (27-31); MCHC 33.6 g/dL (33-37); MCV 96.7 FL (81-99); MONO# 0.52 X1000 (0.11-0.59); MPV 9.3 FL (7.4-10.4); NEUT% 69.4 % (42.2-75.2); PLT 258 X1000 (130-400)
[2016-10-18 07:44] LABS: AGAP 10; ALBUMIN 2.9 g/dL (3.5-5.0); ALKALINE PHOSPHATASE 60 U/L (32-104); BUN 21 mg/dL (8-22); CALCIUM 9.5 mg/dL (8.8-10.2); CHLORIDE 106 mmol/L (98-107); COSMO 288; GOT 34 U/L (10-30); GPT 22 U/L (10-36); POTASSIUM 3.7 mmol/L (3.5-5.1); SODIUM 143 mmol/L (136-145); TCO2 27 mmol/L (25-35); TOTAL BILIRUBIN 0.49 mg/dL (0.20-1.00); TOTAL PROTEIN 6.3 g/dL (6.3-8.3)
[2016-10-18] MEDS: ASPIRIN EC PO SCH (08:37)
[2016-10-18] MEDS: NEXIUM PO SCH (08:37)
[2016-10-18] MEDS: CYMBALTA PO SCH (08:37)
[2016-10-18] MEDS: CRESTOR PO SCH (08:37)
[2016-10-18] MEDS: TOPROL XL PO SCH (08:38)
[2016-10-18] MEDS: ZETIA PO SCH (08:38)
[2016-10-18] MEDS: LOVENOX SUBQ SCH ×2 (08:38→10:45)
--- NOTE | 2016-10-18 13:03 | PROGRESS NOTE ---
DATE: 10/18/2016 Ms. Shaikh is awake, alert, attentive. She is more appropriate than yesterday and continues wide awake and alert. There is nothing new neurologically. We discussed the imaging findings of apparent microischemic changes and these may or may not have clinical relevance. I do not think cerebral ischemia was responsible for her recent change in mental status and behavior. I am optimistic that she will continue to improve with current management. Thanks for asking me to see Ms. Shaikh. cc: Jennie Gordon III, MD [facility]
[2016-10-18] MEDS: NS NEB INH SCH (20:35)
--- NOTE | 2016-10-18 23:50 | PROGRESS NOTE ---
DATE: 10/18/2016 SUBJECTIVE: Patient had no complaints. She appears to be awake, alert. She is eating. Again denies any suicidality. OBJECTIVE: Vital signs: Blood pressure 103/66, heart rate 87, respiratory 16, temperature 98.7 degrees, 93% on room air. Cardiovascular: Regular rate and rhythm. Pulmonary: Bilateral breath sounds. Clear to auscultation. GI: Soft, nontender, nondistended. Bowel sounds are positive. Extremities: No clubbing or cyanosis. Lymphatics: No peripheral edema. Neurological: Nonfocal. LABORATORY DATA: Unremarkable. Potassium up to 3.7 white count, normal, hemoglobin and hematocrit 11 and 34. PROBLEM LIST: 1. Encephalopathy seems to have been resolved. Unclear what happened initially. 2. Aspiration pneumonia. She is on Zosyn day 3 and seems to be doing well. 3. Hypertension appears to be well controlled. DISPOSITION: We will get Darlene Matias to evaluate because her medications need to be adjusted and then need to consider outpatient referral. cc: Jules Calvo MD
[2016-10-19] MEDS: ZOSYN 3.375 GM/NS 3.375 GM/50 ML IVPB IV SCH ×4 (03:24→21:53)
[2016-10-19] MEDS: NS NEB INH SCH (04:22)
[2016-10-19] MEDS: XOPENEX NEB INH SCH ×2 (04:22→10:11)
[2016-10-19] MEDS: NEXIUM PO SCH (09:09)
[2016-10-19] MEDS: ASPIRIN EC PO SCH (09:10)
[2016-10-19] MEDS: TOPROL XL PO SCH (09:10)
[2016-10-19] MEDS: CRESTOR PO SCH (09:10)
[2016-10-19] MEDS: CYMBALTA PO SCH (09:10)
[2016-10-19] MEDS: ZETIA PO SCH (09:10)
[2016-10-19] MEDS: LOVENOX SUBQ SCH (09:11)
--- NOTE | 2016-10-19 14:17 | Diag Imaging Result Document ---
PROCEDURE NAME: CHEST-2 VIEWS - 10/19/2016 FRONTAL AND LATERAL CHEST, 2 VIEWS: COMPARISON: Compared to 10/17/2016. FINDINGS: Interval improvement with decrease in the size of the right lower lobe pneumonia. Infiltrates in the left base are also less pronounced. The heart is not enlarged. The pulmonary vessels are not distended. Mild scoliosis. IMPRESSION: Interval improvement in the basilar pneumonia.
--- NOTE | 2016-10-19 15:35 | PROGRESS NOTE ---
DATE: 10/19/2016 SUBJECTIVE: Patient has no focal complaint. She appears quiet, lying in bed. OBJECTIVE: Blood pressure 120/71, heart rate of 78, respiratory rate of 22, temperature 98.5 degrees, 95% on 3 L, she has dropped to about 86% on 2 L.Cardiovascular: Regular rate and rhythm. Pulmonary: Diminished at the bases. GI: Soft, nontender, nondistended. Bowel sounds are positive. LABORATORY DATA: White count is normal at 7, hemoglobin and hematocrit 11 and 34, platelets 258,000. Chemistries look okay, potassium up to 3.7. IMAGING: Chest x-ray actually looks improved, resolving left infiltrate, resolving right basilar infiltrate. PROBLEM LIST: 1. Aspiration pneumonia with hypoxia. We will continue breathing treatments. I am going to switch her to DuoNeb, just a bit more effective at maybe expectoration. Mucomyst and Mucinex, and continue acapella and incentive spirometry, although I do not know how much she is participating in that, in any case. 2. Encephalopathy. That seems to be resolved. Likely medication-related, polypharmacy. She will need medications adjusted. 3. Psychiatric. History of depression, but with no active suicidal ideation. Family has declined to be transferred to [facility]. They would prefer to go home and have evaluations done as an outpatient with their primary psychiatrist. We are continuing Cymbalta alone. She had been on Effexor and Zyprexa previously which I think the dose had been increased. In any case, she seems to have stabilizing. DISPOSITION: I think she could probably go home but she has an increasing O2 requirement. My plan will be to continue. We will set up home oxygen and possible discharge tomorrow. cc: Jules Calvo MD
[2016-10-19] MEDS: DUONEB (A & A) INH SCH ×2 (15:58→19:56)
[2016-10-19] MEDS: MUCINEX PO SCH ×2 (16:55→21:53)
[2016-10-19] MEDS: MUCOMYST 20% INH SCH (19:55)
[2016-10-20] MEDS: ZOSYN 3.375 GM/NS 3.375 GM/50 ML IVPB IV SCH ×2 (03:53→09:49)
[2016-10-20] MEDS: DUONEB (A & A) INH SCH ×3 (03:58→15:29)
[2016-10-20] MEDS: NEXIUM PO SCH (06:11)
[2016-10-20] MEDS: MUCOMYST 20% INH SCH (09:31)
[2016-10-20] MEDS: ZETIA PO SCH (09:48)
[2016-10-20] MEDS: CRESTOR PO SCH (09:48)
[2016-10-20] MEDS: MUCINEX PO SCH (09:48)
[2016-10-20] MEDS: CYMBALTA PO SCH (09:48)
[2016-10-20] MEDS: LOVENOX SUBQ SCH (09:49)
[2016-10-20] MEDS: ASPIRIN EC PO SCH (09:49)
[2016-10-20] MEDS: TOPROL XL PO SCH (09:49)
[2016-10-20 14:39] VITALS: BP 119/67
--- NOTE | 2016-10-21 04:53 | DISCHARGE SUMMARY ---
ADMISSION DATE: 10/14/2016 DISCHARGE DATE: 10/20/2016 OBJECTIVE: Vital Signs: Blood pressure 119/67, heart rate of 80, respiratory rate of 14, temperature 98.9 degrees, 96% on 2 L. Cardiovascular: Regular rate and rhythm. Pulmonary: Bilateral breath sounds clear to auscultation. GI: Soft, nontender, nondistended. Labs: White count 7, hemoglobin and hematocrit 11 and 34, platelet count 258,000. Her clinical exam was stable. She was able to ambulate and her saturations were 91% even after exertion so she will not need oxygen. ADMISSION DIAGNOSES: 1. Acute encephalopathy, likely drug related. 2. Lactic acidosis, leukocytosis, and aspiration pneumonia, so therefore sepsis. 3. Depression with suicidality. DISCHARGE DIAGNOSES: 1. Acute encephalopathy, likely drug related. 2. Lactic acidosis, leukocytosis, and aspiration pneumonia, so therefore sepsis. 3. Depression with suicidality. 4. She had some persistent respiratory failure, hypoxia which has resolved. CONSULTATIONS: Neurology. PROCEDURE: MRI which was negative and a neck CT which was unremarkable, although she had some left upper lobe airspace disease. HOSPITAL COURSE: Briefly, this is a 71-year-old female with a history of severe depression and multiple suicidal attempts in the past. Apparently, she was found unresponsive. No obvious evidence of drug overdose. The did end up finding a couple of empty bottles of medications but she denied any suicidality. She initially came in essentially obtunded. Her workup, head CT and the rest of it was really unremarkable. She was responsive but she was very lethargic for about 24 hours. Her MRI on the was unremarkable. Again, she continued to wake up. I think by the , she had essentially resolved. At least, she was much more awake and alert. We were able to advance her diet and progress now. She had some persistent hypoxia which she did have airspace disease consistent with pneumonia, left basilar infiltrate and right basilar infiltrates as she had been treated with Zosyn during her course. She slowly continued to improve. We had an assessment by Darlene Matias who did feel that she could benefit from inpatient psychiatric treatment. However, the family declined, did not want to be transferred for that process. The patient exhibited no suicidal ideation while she was here. We monitored her another 24-48 hours to work on getting her oxygen level down which her saturations have been above 92% on room air and again dropped down to about 91% after ambulation but it was not significant enough to need for home oxygen. MEDICATIONS: Augmentin 875 q.12 for another 7 days, aspirin 81 daily, Celebrex 200 daily, Cymbalta 60 daily, vitamin D2 50,000 units daily, Nexium 40 daily, Zetia 10 daily, olanzapine pain will be decreased back to her regular dose which is 5, Crestor 10 daily, and I am going to hold Effexor. These are the 2 medicines that were started recently. CONDITION: Clinically, she stabilized. She was felt to be ready to go home and again that was pursued so we will continue to follow very closely. DISCHARGE INSTRUCTIONS: She will need close followup with her PCP and her primary psychiatrist who is Dr. Garces for medication adjustment and follow up with her regular doctor in about a week or two. She sees Dr. Rachid Godoy. A 35 minute discharge. cc: Jules Calvo MD
--- NOTE | 2016-10-21 18:49 | EEG REPORT ---
DATE: 10/15/2016 DATE OF EXAM: 10/15/2016 EEG#: [id number] [employer] MANAGER: Vannaaidan Tirado BACKGROUND INFORMATION.: TECHNIQUE: A digitally recorded EEG is performed with an extra EKG channel. HISTORY OF PRESENT ILLNESS: A 71-year-old female, admitted with altered mental status and question of seizure. She has a history of psychiatric illness with previous suicide attempts. MEDICATIONS: Notable for Ativan 1 mg IV now dosed in the morning of the procedure. EEG FINDINGS: A posterior dominant alpha rhythm is notably absent. The background consists of primarily 6-7 hertz theta slowing with some admixed delta , as well as some admixed faster frequencies. No epileptiform discharges seen. No electrographic seizures seen. No focal slowing appreciated. Hyperventilation was not performed. Photic stimulation induced a normal photic driving response at multiple frequencies. The patient is awake during the study. There is some drowsiness noted, but Stage 2 sleep is not seen. The EKG demonstrates regular RR intervals. IMPRESSION AND RECOMMENDATIONS: This is an abnormal routine EEG study due: 1. [id number] background slowing, indicative of a [id number] diffuse encephalopathy. Generalized slowing is a nonspecific finding that can be seen in processes that diffusely affect the cerebrum, including toxic, metabolic, post hypoxic, pharmacologic , or infectious conditions. 2. No epileptiform abnormalities or seizures are noted. This does not rule out an underlying seizure disorder. cc: Cathleen Jeff MD MTD
== END 2016-10-20 16:32 | disposition home or self-care (01) ==
LOC: ED 07:00 → EDIPHOLD 09:26 → ICU 12:42 → 3N 10-17 15:04
PROVIDERS: ATTEND Internal Medicine